=== PATIENT | male | born 1975 | race Two or more races ===

== ENCOUNTER 2017-02-16 15:32 | Emergency (ER) | payer SELFPAY ==
[~2017-02-16] VITALS: Ht 167.6 cm; Wt 68.0 kg
[2017-02-16 16:11] VITALS: BP 141/74
== END 2017-02-16 16:24 | disposition home or self-care (01) ==
LOC: ER 15:39
DX: Z48.02 Encounter for removal of sutures (principal); F17.200 Nicotine dependence, unspecified, uncomplicated
CPT/HCPCS: 99281; A4606; Z7610; Z7502

== ENCOUNTER 2017-07-31 14:51 | Emergency (ER) | payer SELFPAY ==
[~2017-07-31] VITALS: Ht 175.3 cm; Wt 72.1 kg
[2017-07-31 15:24] LABS: BASOPHILS # (AUTO) 0.1 /CMM (0.0-0.2); BASOPHILS % (AUTO) 1.6 % (0.0-2.0); EOSINOPHILS % (AUTO) 1.7 % (0.0-6.0); HEMATOCRIT 44 % (39-51); HEMOGLOBIN 14.6 g/dL (13.5-17.5); LYMPHOCYTES # (AUTO) 2.7 /CMM (0.8-4.8); LYMPHOCYTES % (AUTO) 36.9 % (20.0-44.0); MEAN CORPUSCULAR HGB CONC 33 g/dl (31.0-36.0); MEAN CORPUSCULAR VOLUME 84 fL (80-96); MONOCYTES # (AUTO) 0.6 /CMM (0.1-1.30); MONOCYTES % (AUTO) 8.1 % (2.0-12.0); NEUTROPHILS # (AUTO) 3.9 /CMM (1.8-8.9); NEUTROPHILS % (AUTO) 51.7 % (43.0-81.0); PLATELET COUNT (AUTO) 286 /CMM (150-450); RDW COEFFICIENT OF VARIATION 14.1 (11.5-15.0); RED BLOOD CELL COUNT(AUTO) 5.26 MIL/uL (4.5-6.0); WHITE BLOOD COUNT (AUTO) 7.4 K/uL (4.3-11.0)
[2017-07-31] MEDS ORDERED: ONDANSETRON 4 MG TAB.RAPDIS SL ONE (15:30)
[2017-07-31] MEDS ORDERED: LORAZEPAM INJ 2 MG/ML VIAL ONE ×2 (15:34→19:59)
[2017-07-31] MEDS ORDERED: OLANZAPINE 10 MG VIAL IM ONE ×2 (15:34→16:00)
[2017-07-31 15:35] LABS: CALCIUM, SERUM 9.5 mg/dL (8.5-10.1); CARBON DIOXIDE 27 mmol/L (21-32); CHLORIDE 107 mmol/L (98-107); CREATININE 1.5 mg/dL (0.6-1.3); GLUCOSE 117 mg/dL (74-106); POTASSIUM 3.8 mmol/L (3.5-5.1); SODIUM SERUM 142 mmol/L (136-145); UREA NITROGEN, BLOOD 18 mg/dL (7-18)
[2017-07-31 15:40] LABS: ALANINE AMINOTRANSFERASE 26 U/L (12-78); ALBUMIN 4.2 g/dL (3.4-5.0); ALCOHOL, BLOOD < 3 mg/dL (0-0); ALKALINE PHOSPHATASE 95 U/L (46-116); ASPARTATE AMINOTRANSFERASE 29 U/L (15-37); BILIRUBIN,DIRECT 0.2 mg/dL (0.0-0.2); BILIRUBIN,TOTAL 0.9 mg/dL (0.2-1.0); TOTAL PROTEIN, SERUM 7.7 g/dL (6.4-8.2)
[2017-07-31 15:41] LABS: ACETAMINOPHEN 0 ug/ml (10-30); SALICYLATE < 2.8 mg/dL (2.8-20.0)
[2017-07-31] MEDS ORDERED: LORAZEPAM INJ 2 MG/ML VIAL IM ONE (16:00)
--- NOTE | 2017-07-31 19:09 | NUR ---
PT TAKEN TO CT
--- NOTE | 2017-07-31 19:18 | NUR ---
TRIED TO SCAN PT, BUT UNABLE TO STAY STILL. TOOK PT BACK TO ER. ER WILL CALL WHEN READY.
[2017-07-31] MEDS ORDERED: LORAZEPAM INJ 2 MG/ML VIAL IV ONE (20:00)
--- NOTE | 2017-07-31 20:05 | NUR ---
ASSUMED CARE OF PT AT THIS TIME. CT AT BEDSIDE TO TAKE PT. NO S/S OF DISTRESS NOTED. RESP EVEN AND UNLABORED.
--- NOTE | 2017-07-31 20:21 | NUR ---
RETURNED FROM CT; STILL SEDATED AND ON MONITOR.
[2017-07-31] MEDS ORDERED: IV NS 0.9% 1,000 ML BAG IV ONE (21:30)
--- NOTE | 2017-07-31 21:52 | NUR ---
RESTING WITH NO S/S OF DISTRESS AT THIS TIME. STILL MONITORED. RESP EVEN AND UNLABORED. RETRAINTS ALL REMOVED
--- NOTE | 2017-07-31 22:53 | NUR ---
REMAINS RSTING WITH NO S/S OF DISTRESS NOTED. RESP EVENAND UNLABORED.
--- NOTE | 2017-07-31 23:26 | NUR ---
LAYING LT SIDE AT THIS TIME. NO S/S OF DISTRESS NOTED. WILL CONTINUE TO MONITOR PT.
--- NOTE | 2017-08-01 00:27 | NUR ---
REPOSTIONED FOR COMFORT. LYING RT SIDE.
--- NOTE | 2017-08-01 01:09 | NUR ---
REMAINS RESTING WITHOUT ANY S/S OF DISTRESS. RESP EVEN AND UNLABORED. STILL MONITORED.
--- NOTE | 2017-08-01 02:28 | NUR ---
LYING PRONE AT THIS TIME. SLOWLY AROUSABLE. WILL CONTINUE TO MONITOR PT. RESP EVEN AND UNLABORED
--- NOTE | 2017-08-01 04:06 | NUR ---
REASSESSED AND RESTING SUPINE WITH NO S/S OF DISTRESS. RESP EVEN AND UNLABORED
--- NOTE | 2017-08-01 05:55 | NUR ---
ATTEMPTED TRIAL AMBULATION. UNSTABLE AT THIS TIME. WILL ATTEMPT AGAIN LATER. AAO X4. DENIES ANY SX'S AT THIS TIME.
--- NOTE | 2017-08-01 06:14 | NUR ---
PT NOTED AMBULATING TO RESTROOM WITH STEADY GAIT. DENIES ANY SX'S AT THIS TIME. STATES "AM READY TO GO HOME".
[2017-08-01 06:15] VITALS: BP 117/79
--- NOTE | 2017-08-01 06:15 | NUR ---
MD NOTIFIED AND Patient discharged to home in stable condition. Written and verbal after care instructions given. Patient verbalizes understanding of instruction.
== END 2017-08-01 06:16 | disposition home or self-care (01) ==
LOC: ER 14:52
DX: F15.159 Other stimulant abuse with stimulant-induced psychotic disorder, unspecified (principal); N28.9 Disorder of kidney and ureter, unspecified; F17.200 Nicotine dependence, unspecified, uncomplicated
CPT/HCPCS: 36415; 70450-TC; 71045-TC; 80048-TC; 80076-TC; 82550-TC; 84484-TC; 85025-TC; A4606; G0480; J2060; J3490; Z7610

== ENCOUNTER 2017-08-14 12:08 | Emergency (ER) | payer SELFPAY ==
[~2017-08-14] VITALS: Ht 175.3 cm; Wt 83.9 kg
[2017-08-14 12:12] VITALS: BP 130/78
--- NOTE | 2017-08-15 06:36 | NUR ---
patient returns requesting a prescription for pencillin. I did provide him a copy of his prescription.
== END 2017-08-14 12:44 | disposition home or self-care (01) ==
LOC: ER 12:09
DX: K02.9 Dental caries, unspecified (principal); F19.10 Other psychoactive substance abuse, uncomplicated; F17.200 Nicotine dependence, unspecified, uncomplicated; Z59.0 Homelessness
CPT/HCPCS: 99283; 99406; A4606; Z7610